=== PATIENT | male | born 1990 ===

== ENCOUNTER 2023-01-08 21:02 | Emergency (ER) | payer OTHER, SELFPAY ==
[2023-01-08] MEDS ORDERED: HYDROcodone/Acetaminophen 5/325 mg Tablet ONE (21:16)
[2023-01-08] MEDS ORDERED: Ibuprofen 800 MG TAB ONE (21:16)
== END 2023-01-08 22:12 | disposition home or self-care (01) ==
LOC: BURERS 21:02
DX: S92.252A Displaced fracture of navicular [scaphoid] of left foot, initial encounter for closed fracture (principal); W19.XXXA Unspecified fall, initial encounter
CPT/HCPCS: 27808